=== PATIENT | male | born 1950 | race Caucasian/White ===

== ENCOUNTER 2017-07-04 05:45 | Day surgery (SDC) | payer OTHER ==
[2017-06-25 12:12] LABS: HEMATOCRIT 45.6 % (42-52); MEAN CELL VOLUME 94.2 fL (80-100); MEAN CORPUSCULAR HEMOGLOBIN 32.6 pg (25-34); MEAN CORPUSCULAR HGB CONC 34.6 g/dl (32-36); PLATELET COUNT 188 K/uL (130-400); RED BLOOD COUNT 4.84 M/uL (4.7-6.1)
[2017-06-25 12:26] LABS: INR 1.1 (0.9-1.1); PARTIAL THROMBOPLASTIN RATIO 1.2; PROTHROMBIN TIME (PATIENT) 11.7 SECONDS (9.0-12.0)
[2017-06-25 12:27] LABS: BLOOD UREA NITROGEN 20 mg/dl (7-18); BUN/CREATININE RATIO 15.3 (10-20); CALCIUM 8.8 mg/dl (8.5-10.1); CARBON DIOXIDE 25 mmol/L (21-32); CHLORIDE 104 mmol/L (98-107); GLUCOSE 124 mg/dl (70-99); POTASSIUM 4.2 mmol/L (3.5-5.1); SODIUM 138 mmol/L (136-145)
[~2017-07-04] VITALS: Ht 175.3 cm; Wt 130.0 kg
[~2017-07-04 05:45] MED LIST: ASPI81TA28 PO; GENERAL ORDER PROBLEM SCH; PANT40TA PO; [UNRECOGNIZED DRUG - CODE] PO
[2017-07-04] MEDS ORDERED: SODIUM CHLORIDE 0.9% 1000ML 1,000 ML IV SCH ×2 (06:00→07:15)
[2017-07-04] MEDS ORDERED: ENAL1TAB29 PO (07:02)
[2017-07-04] MEDS ORDERED: PIRO-104 PO (07:02)
[2017-07-04] MEDS ORDERED: CEPH500C2 PO (07:02)
[2017-07-04 07:04] VITALS: BP 159/65; PULSE 57; TEMP 36.6; O2SAT 94; Ht 175.3 cm; Wt 130.0 kg
[2017-07-04] MEDS ORDERED: LIDOCAINE HCL 1% 20 ML VIAL ONE (07:19)
[2017-07-04] MEDS ORDERED: MIDAZOLAM HCL 1 MG/ML 2ML VIAL ONE (07:19)
[2017-07-04] MEDS ORDERED: SODIUM BICARB 8.4% INJ 50 MEQ/50 ML SYR IV ONE (07:19)
[2017-07-04] MEDS ORDERED: LIDOCAINE/EPINEPHRINE 1% INJ 50 ML VIAL ONE (07:19)
[2017-07-04] MEDS ORDERED: FENTANYL CITRATE INJ 50 MCG/1 ML 2 ML VIAL ONE (07:19)
[2017-07-04 07:38] VITALS: BP 159/65; PULSE 57; TEMP 36.6; O2SAT 94
--- NOTE | 2017-07-04 08:03 | History & Physical Bridge Note ---
H&P Re-Evaluation Bridge Note: I have examined the patient, reviewed the History & Physical and in the interval since the performance of the History & Physical I have noted the following changes of clinical significance: No changes noted
--- NOTE | 2017-07-04 08:03 | Procedure Note ---
Pre-Mod Sedation Assessment General Date of Moderate Sedation: Jul 04, 2017. Vital Signs: Vital Signs Past 12 Hours Date Time Temp Pulse Resp B/P (MAP) Pulse Ox O2 Delivery O2 Flow Rate FiO2 07/04/17 07:38 36.6 57 20 159/65 94 Room Air 07/04/17 07:04 36.6 57 20 159/65 (96) 94 Room Air Review Cardiovascular: regular rate, rhythm, no edema Abdomen: normal bowel sounds, non tender Lungs: chest non-tender, lungs clear Airway Class: III Pre-Sedation Airway Assessment Oral Cavity: WNL Able to Visualize Vocal Cords: No Short Thick Neck: No Hx of Sleep Apnea: No Smoking Status: Never Smoker Mallampati Classification: Class III ASA Classification: Class II Procedure Planning Contraindications-for Mod Sed: None Yes Notes The planned sedation has been discussed with the patient and consent obtained. I have identified the patient, determined the appropriateness of sedation and have assessed the patient immediately prior to the procedure. All medicine(s) and interventions are by my order.
[2017-07-04] MEDS ORDERED: LIDOCAINE HCL 1% 20 ML VIAL INJ ONE (08:48)
[2017-07-04] MEDS ORDERED: ORM MISCELLANEOUS MED XX ONE (08:52)
--- NOTE | 2017-07-04 09:13 | Procedure Note ---
Post-Mod Sedation Assessment General Date of Moderate Sedation Jul 04, 2017. Vital Signs: Vital Signs Past 12 Hours Date Time Temp Pulse Resp B/P (MAP) Pulse Ox O2 Delivery O2 Flow Rate FiO2 07/04/17 07:38 36.6 57 20 159/65 94 Room Air 07/04/17 07:04 36.6 57 20 159/65 (96) 94 Room Air Review - Discharge Criteria Vital Signs Stable: Yes Alert/Oriented/Conversant: Yes Returned to Baseline Mental St: Yes Nausea Absent/Minimal: Yes Pain/Discomfort/Absent/Minimal: Yes Normal/Baseline Respirations: Yes Active Bleeding?: No Pt Received D/C Instructions: N/A Prescriptions Given: None Specific Proced. D/C Criteria Distal Pulses Present (Cardiac: Yes Groin site assessed-Card Cath: N/A Voided Prior To Discharge: N/A Discharged Patients Adult Escort/Transportation: Yes
--- NOTE | 2017-07-04 09:15 | [facility] Operative Report ---
Operative Report Operative Date Jul 04, 2017. Pre-Operative Diagnosis Venous Insufficiency Post-Operative Diagnosis Same Procedure(s) Performed Right Leg Greater Saphenous Vein Radiofrequency Ablation Surgeon Bolivar Electroencephalographic Technician Surgeon(s) Bolivar Estimated Blood Loss 5 Findings Dilated GSV with distal varicosities. Fluids 700 Tumescent Specimens None Drains None Anesthesia Local Complication(s) None Disposition Recovery Room / PACU Indications CVI Description of Procedure US guided access Right GSV below the knee. Catheter inserted, 2.75 cm from SFJ. Tumescent injected. US confirmed not in deep system. 4:00, 12 cycles of RFA right GSV. No complications. Patient tolerated well. US confirmed no DVT post procedure. I attest to the content of the Intraoperative Record and any orders documented therein. Any exceptions are noted below.
--- NOTE | 2017-07-04 09:17 | Discharge Instructions ---
Discharge Instructions Procedure Procedure Date: Jul 04, 2017. Reason for Visit: Chronic Venous Insufficiency,Preop. Discharge Discharge Date: Jul 04, 2017. Discharge Diagnosis: Chronic venous insufficiency Last Recorded Wt (Kilograms): 130 Anesthesia Post Anesthesia Instructions: If you have had General Anesthesia or IV Sedation: * Do not drive today. * Resume driving when surgeon permits. * Do not make important decisions or sign legal documents today. * Call surgeon for: 1. Temperature elevations greater than 101 degrees F. 2. Uncontrollable pain. 3. Excessive bleeding. 4. Persistent nausea and vomiting. 5. Medication intolerance (nausea, vomiting or rash). * For nausea and vomiting use only clear liquids such as: tea, soda, bouillon until nausea subsides, then gradually increase diet as tolerated. * If you have any concerns or questions, call your surgeon's office. If physician is unavailable and it is an emergency, call 911 or go to the nearest emergency room. Instructions Activity Recommendations: resume regular activity Recommended Home Diet: resume previous diet Allergies: Coded Allergies: No Known Allergies (Unverified , 07/04/17) Follow Up Additional Instructions: Follow instructions as outlined in paperwork from Dr. Lutz' office. Up walking today. Follow up Ultrasound as scheduled. BREE wrap until scheduled ultrasound Post ultrasound wear compression stockings indefinitely. Any severe pain, present to the emergency room for evaluation for DVT. Follow-up with: As scheduled Thi Kenney Recommendations: Call your doctor if: * Temperature above 101 degrees * Pain not relieved by pain medicine ordered * There is increased drainage or redness from any incision * You have any unanswered questions or concerns. Your Doctors Instructions noted above were prepared by provider Blas Lutz. Patient Signature Section: Patient Instructions Signature Page Malcolm Trent Patient (or Guardian) Signature/Date: I have read and understand the instructions given to me by my caregivers. Caregiver/RN/Doctor Signature/Date: The above-named patient and/or guardian has received patient instructions on this date. + Original Patient Signature Page (only) stays with chart. Please make copy for patient.
[2017-07-04 09:25] VITALS: BP 139/71; PULSE 56; TEMP 36.6; O2SAT 95
[2017-07-04 09:55] VITALS: BP 148/77; PULSE 57; TEMP 36.5; O2SAT 94
== END 2017-07-04 10:10 | disposition home or self-care (01) ==
LOC: C.ACU 05:45
PROVIDERS: ATTEND Internal Medicine Interventional Cardiology
DX: I87.2 Venous insufficiency (chronic) (peripheral) (principal); K21.9 Gastro-esophageal reflux disease without esophagitis

== ENCOUNTER 2020-06-14 10:34 | Observation (INO) ==
--- NOTE | 2020-06-04 10:32 | Anesthesiology Consultation ---
Date of Service June 04, 2020 History Surgery Operation Date: 06/14/20 12:55 Proposed Procedures p Cystolithopaxy - Miguel Early DO s Transurethral Resection Prostate and Cystolithopaxy - Miguel Early DO Height/Weight Height: 5 ft 9 in Weight: 133.81 kg Allergies Allergy/AdvReac Type Severity Reaction Status Date / Time No Known Allergies Allergy Verified 06/04/20 08:25 Medications Home Medications Medication Instructions Recorded Confirmed Last Taken aspirin [Aspir-81] 81 mg PO QAM 05/08/20 06/04/20 Unknown enalapril maleate 40 mg PO QAM 05/08/20 06/04/20 Unknown hydrocodone-acetaminophen 1 - 2 tab PO Q8H PRN 05/08/20 06/04/20 Unknown metoprolol succinate 50 mg PO QAM 05/08/20 06/04/20 Unknown pantoprazole 40 mg PO QAM 05/08/20 06/04/20 Unknown piroxicam 20 mg PO QAM 05/08/20 06/04/20 Unknown Inhaler 1 puff INHALATION UD PRN 06/04/20 06/04/20 Unknown tamsulosin 0.4 mg PO QAM 06/04/20 06/04/20 Unknown Past Medical History Medical History Bladder stones 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
--- NOTE | 2020-06-07 08:22 | PAT Medication Instructions ---
Medication Instructions Date of Service June 07, 2020 Home Medications aspirin [Aspir-81] 81 mg PO QAM enalapril maleate 40 mg PO QAM hydrocodone-acetaminophen 1 - 2 tab PO Q8H PRN metoprolol succinate 50 mg PO QAM pantoprazole 40 mg PO QAM piroxicam 20 mg PO QAM Inhaler 1 puff INHALATION UD PRN tamsulosin 0.4 mg PO QAM ASK your surgeon for instructions piroxicam 20 mg PO QAM ASK your prescriber and surgeon aspirin [Aspir-81] 81 mg PO QAM DO NOT take the morning of surgery enalapril maleate 40 mg PO QAM Take morning of surgery With a small sip of water, OTHERWISE NOTHING TO EAT OR DRINK AFTER MIDNIGHT: hydrocodone-acetaminophen 1 - 2 tab PO Q8H PRN (okay to take up to 4 hours prior to surgery if needed) metoprolol succinate 50 mg PO QAM pantoprazole 40 mg PO QAM Inhaler 1 puff INHALATION UD PRN (if needed) tamsulosin 0.4 mg PO QAM Take evening before surgery hydrocodone-acetaminophen 1 - 2 tab PO Q8H PRN(if needed) Inhaler 1 puff INHALATION UD PRN(if needed) Other Notes If you have any questions please call us at [phone] or [phone] or [phone] or [phone]
--- NOTE | 2020-06-08 13:51 | Anesthesiology Consultation ---
Date of Service June 08, 2020 Assessment & Plan (1) Encounter for pre-operative examination: - Per assessment on 06/04: Travel screen- lives in [facility]. [place] at [employer])- Uses PPE/follows COVID precaution guidelines. No known COVID-19 positive contacts or current COVID-19 related symptoms. Patient had preop COVID testing 06/08 ([place]) which was negative. - ALE: ALE in setting of dysuria/acute urinary retention/possible bladder outlet obstruction secondary to stone/Chamorro- reason for upcoming procedure. Creatinine 2.24 on 05/08/20 labs. Spoke with Erica at surgeon's office to inform them of 05/08 lab results and that DOS 06/14. Will order repeat BMP for AM DOS. Chart Review Chart Review: Acceptable Risk for Surgery (pending BMP AM DOS) and Patient NOT seen in Pre Admission Testing History Surgery Operation Date: 06/14/20 12:15 Proposed Procedures p Cystolithopaxy - Miguel Early DO s Transurethral Resection Prostate and Cystolithopaxy - Miguel Early, Height/Weight Height: 5 ft 9 in Weight: 133.81 kg Allergies Allergy/AdvReac Type Severity Reaction Status Date / Time No Known Allergies Allergy Verified 06/04/20 08:25 Medications Home Medications Medication Instructions Recorded Confirmed Last Taken aspirin [Aspir-81] 81 mg PO QAM 05/08/20 06/04/20 Unknown enalapril maleate 40 mg PO QAM 05/08/20 06/04/20 Unknown hydrocodone-acetaminophen 1 - 2 tab PO Q8H PRN 05/08/20 06/04/20 Unknown metoprolol succinate 50 mg PO QAM 05/08/20 06/04/20 Unknown pantoprazole 40 mg PO QAM 05/08/20 06/04/20 Unknown piroxicam 20 mg PO QAM 05/08/20 06/04/20 Unknown Inhaler 1 puff INHALATION UD PRN 06/04/20 06/04/20 Unknown tamsulosin 0.4 mg PO QAM 06/04/20 06/04/20 Unknown Past Medical History Medical History Bladder stones 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 WBC 12.95 (surgeon's office made aware) H/H 15.8/44.0 PLATELETS 172 SODIUM 136 POTASSIUM 4.5 CHLORIDE 102 CO2 26 BUN 24 CREATININE 2.24 (GFR 28.6) ALE in setting of dysuria/acute urinary retention/possible bladder outlet obstruction secondary to stone/Chamorro. Surgeon's office made aware. GLUCOSE 128 PT 12.0 PTT 34.3 INR 1.1 Electrocardiogram Date: 05/08/20 SR with first degree AVB at 62bpm. Otherwise normal ECG. Chest X-Ray Date: 05/08/20 Low lung volumes with a few bibasilar linear densities suggesting subsegmental atelectasis. Mild cardiomegaly.
[~2020-06-14 10:34] MED LIST changes: -ASPI81TA28 PO; +CIPROFLOXACIN / D5W 400 MG/200 ML BAG IV SCH; -GENERAL ORDER PROBLEM SCH; -PANT40TA PO; +SODIUM CHLORIDE 0.9% 1000ML IV SCH; -[UNRECOGNIZED DRUG - CODE] PO
--- NOTE | 2020-06-14 10:56 | History & Physical Bridge Note ---
Date of Service June 14, 2020 History & Physical Bridge Note I have examined the patient, reviewed the History & Physical and in the interval since the performance of the History & Physical I have noted the following changes of clinical significance: no changes noted
[2020-06-14] MEDS ORDERED: LIDOCAINE HCL 2% 2 ML VIAL/AMP(20MG/ML) INFIL ONE (11:09)
[2020-06-14] MEDS ORDERED: DEXAMETHASONE SOD INJ 4 MG/ML VIAL ONE (11:09)
[2020-06-14] MEDS ORDERED: PROPOFOL IV EMULSION 10 MG/ML 20 ML VIAL IV ONE ×2 (11:09→14:01)
[2020-06-14] MEDS ORDERED: ONDANSETRON INJ 2 MG/ML 2 ML VIAL ONE (11:09)
[2020-06-14] MEDS ORDERED: fentaNYL citrate 100 MCG/2 ML VIAL ONE ×3 (11:10→14:31)
[2020-06-14] MEDS ORDERED: MIDAZOLAM HCL 1 MG/ML 2ML VIAL ONE (11:10)
[2020-06-14] MEDS ORDERED: ePHEDrine sulfate 50 MG/ML AMP IV PRN (11:12)
[2020-06-14] MEDS ORDERED: PHENYLEPHRINE 100MCG/ML 5ML SYR IV PRN (11:12)
[2020-06-14] MEDS ORDERED: fentaNYL citrate 100 MCG/2 ML VIAL IV PRN (11:12)
[2020-06-14] MEDS ORDERED: HYDROmorphone INJ 1 MG/ML SYRINGE IV PRN (11:12)
[2020-06-14] MEDS ORDERED: LABETALOL HCL IV 5 MG/ML 20ML IV PRN (11:12)
[2020-06-14] MEDS ORDERED: ONDANSETRON INJ 2 MG/ML 2 ML VIAL IV PRN ×2 (11:12→13:08)
[2020-06-14] MEDS ORDERED: ATROPINE SULFATE 0.1 MG/ML 10ML SYR IV PRN (11:12)
[2020-06-14] MEDS ORDERED: MEPERIDINE HCL 25 MG/ML CARP/VIAL IV PRN (11:12)
[2020-06-14 11:42] LABS: Calcium 9.1 mg/dl (8.5-10.1); Creatinine Clr Calc Pharmacy 73.8 ml/min; Est GFR (African American) 65.3; Est GFR (Non-African American) 56.3
[2020-06-14] MEDS ORDERED: BELLADONNA/OPIUM SUPP 60 MG SUPP PR ONE ×2 (13:08→15:34)
--- NOTE | 2020-06-14 14:58 | Operative Report ---
[facility] Post Operative Report Pre & Post Diagnosis BPH with obstruction. Bladder stones Same Operation Date: 06/14/20 12:15 <No data on this case meets the specified criteria> I identified the patient and participated in the time-out.: Yes Procedure Cystoscopy with destruction and extraction of stones. Transurethral resection of prostate. Operation Date: 06/14/20 12:15 <No data on this case meets the specified criteria> Surgeon Miguel Early, II, DO Production Boring Machine Operator None Estimated Blood Loss 5 Findings Consistent with Post-Op Diagnosis Large Prostate with obstruction. Multiple stones in base of bladder approx 1.2- 1.5 cm in size. Specimens Prostate adenoma. Drains 24Fr [address] Catheter Anesthesia Type General Complications none Disposition Disposition: Recovery Room Indications Patient with obstruction due to prostate enlargement. Risks and benefits discussed at length. Description of Procedure Patient was consented and brought back to the operating room. Patient was placed under anesthesia in the supine position and moved to the dorsal lithotomy position. Patient was prepped and draped in the regular sterile fashion. A time out was completed. A 30degree Cystoscope was placed into the bladder and the entire bladder was examined. The UO's were identified as well as the bladder neck, trigone, dome, and the other important landmarks. The prostatic urethra and large lobes/adenoma was assessed and the veru and bladder neck identified and area/size was assessed. The resection scope was placed and the fine bipolar loop was selected. Starting at the 5 and 7 o'clock positions, a channel was created from bladder neck to the veru. With the channel created, resection was taken from the 1 and 11 oclock position to the channel. A large amount of tissue was resected to open a good channel and debulk the large amount of prostate. The Specimen was removed and sent for analysis. The resection bed and any bleeding areas were fulgurated/cauterized and the entire area inspected. All bleeding was controlled. The bladder stones were isolated and destroyed and irrigated and removed. The bladder was inspected a final time. The bladder was emptied and irrigated. All specimen and debris was removed. The scope was removed with the bladder partially full. A catheter was placed and balloon elevated. This was easily irrigated. This was attached to the continuous bladder irrigation. The patient was cleaned, aroused from anesthesia, and transferred to the pacu in stable condition having tolerated the procedure well with no complications. I was present and participated in all aspects of the procedure. The patient will be monitored in the PACU until transferred. I attest to the content of the Intraoperative Record and any orders documented therein. Any exceptions are noted below.
[2020-06-14 15:51] LABS: Basophils # (auto) 0.03 K/uL (0-0.2); Basophils % (auto) 0.4 %; Eosinophils % (auto) 1.2 %; Hematocrit (blood only) 44.4 % (42-52); Hemoglobin 15.3 g/dL (14.0-18.0); Immature Granulocytes # (auto) 0.05 K/uL (0.00-0.02); Immature Granulocytes % (auto) 0.6 %; Lymphocytes # (auto) 1.04 K/uL (1.2-3.4); Mean Corpuscular Hemoglobin 32.9 pg (25-34); Mean Corpuscular Hgb Conc 34.5 g/dL (32-36); Mean Corpuscular Volume 95.5 fL (80-100); Mean Platelet Volume 9.5 fL (7.4-10.4); Monocytes # (auto) 0.35 K/uL (0.11-0.59); Monocytes % (auto) 4.4 %; Neutrophils # (auto) 6.44 K/uL (1.4-6.5); Neutrophils % (auto) 80.4 %; Platelet Count 159 K/uL (130-400); RDW Standard Deviation 48.7 fL (36.4-46.3); Red Blood Count 4.65 M/uL (4.7-6.1); White Blood Count 8.01 K/uL (4.8-10.8)
--- NOTE | 2020-06-14 15:54 | Anesthesiology Progress Note ---
Date of Service June 14, 2020 Anesthesia Post Procedure Vital Signs Vital Signs: Temp Pulse Pulse Resp BP BP Pulse Ox 06/14/20 15:45 36.2 C L 70 19 124/71 95 06/14/20 15:35 72 14 138/71 93 06/14/20 15:25 73 20 151/73 H 95 06/14/20 15:15 74 19 150/73 H 95 06/14/20 15:08 36.1 C L 79 22 189/87 H 95 06/14/20 11:21 36.5 C 97 H 22 168/81 H 97 Transfer of Care Handoff Completed per policy Notes Mental Status: alert / awake / arousable and participated in evaluation Patient Amnestic to Procedure: Yes Nausea / Vomiting: adequately controlled Pain: adequately controlled Airway Patency, RR, SpO2: stable & adequate BP & HR: stable & adequate Hydration State: stable & adequate Anesthetic Complications: no major complications apparent and Pt Satisfied with anesthetic care
[2020-06-14 16:03] LABS: Potassium 4.4 mmol/L (3.5-5.1)
[2020-06-14] MEDS ORDERED: INFLUENZA VIRUS QUAD VACCINE 0.5 ML SYR IM ONE (16:38)
[2020-06-14] MEDS ORDERED: INFLUENZA ADMINISTRATION CHARGE ONE (16:38)
[2020-06-14] MEDS: SODIUM CHLORIDE 0.9% 1000ML 1,000 ML IV SCH (16:44)
[2020-06-14 17:52] LABS: BUN Creatinine Ratio 14.4 (10-20); Calcium 8.7 mg/dl (8.5-10.1); Creatinine Clr Calc Pharmacy 74.7 ml/min; Est GFR (African American) 65.3; Est GFR (Non-African American) 56.3
[2020-06-14] MEDS: oxyCODONE HCL IR 5 MG TAB (IMMEDIATE RELEASE) PO PRN (19:20)
[2020-06-14] MEDS: ENALAPRIL MALEATE 10 MG TAB PO SCH (19:56)
[2020-06-14] MEDS: TAMSULOSIN HCL 0.4 MG CAP PO SCH (19:57)
[2020-06-14] MEDS: METOPROLOL SUCC 50MG EXT REL TAB PO SCH (19:57)
[2020-06-14] MEDS: PANTOprazole 40 MG TAB PO SCH (19:57)
[2020-06-14] MEDS: ceFAZolin 2000MG 2,000 MG/15 ML SYR IV SCH (20:18)
[2020-06-14] MEDS: DOCUSATE SODIUM 100 MG CAP PO SCH (20:23)
[2020-06-14] MEDS: MoRPHine SULFATE 4 MG/ML 1 ML CARP\\VIAL IV PRN ×2 (21:40→23:47)
--- NOTE | 2020-06-14 23:28 | Urology Progress Note ---
Date of Service June 14, 2020 Assessment & Plan Admission and Anticipated Discharge Date Admission Date: June 14, 2020 Subjective On-call note Nurse called approximately 9:30 PM saying that she was having a lot of difficulty irrigating Mr. Trent's catheter and was very bloody he was having a fair amount of lower abdominal pain. I irrigated the catheter with about 3 L of normal saline until it was light pink Then reattached to his CBI at a moderate rate Urine would stay pink and then become more giles and then transition back to pink I tried putting the Chamorro on traction but that made the bleeding worse Irrigated the catheter again until light pink We will switch irrigation to 1% alum hopefully this will stem the oozing that I think is happening After irrigating the catheter and getting it fairly clear patient's abdominal pain resolved. Results & Data ([facility]) Vital Signs (Past 12 Hours) Vital Signs Temp Pulse Pulse Resp BP Pulse Ox 06/14/20 23:24 36.6 C 83 16 119/68 95 06/14/20 19:11 36.5 C 85 18 162/76 H 96 06/14/20 18:18 36 C L 77 20 124/43 L 94 06/14/20 17:11 36.4 C L 68 16 136/75 97 06/14/20 16:40 37 C 68 16 153/83 H 97 06/14/20 16:10 36.6 C 16 159/80 H 95 06/14/20 15:55 71 12 143/67 H 97 06/14/20 15:45 36.2 C L 70 19 124/71 95 06/14/20 15:35 72 14 138/71 93 06/14/20 15:25 73 20 151/73 H 95 06/14/20 15:15 74 19 150/73 H 95 06/14/20 15:08 36.1 C L 79 22 189/87 H 95 PG Care Time/CCT Total # of Minutes Spent Total Time Spent with Patient: Total time spent is greater than 50% in coordination of care (as documented) at patient's floor/unit and/or counseling patient: Coding Level of Care Code None
[2020-06-14] MEDS: AMMONIUM ALUM 30 GM in SODIUM CHLORIDE 0.9% IRRIG 3,000 ML IR SCH (23:38)
--- NOTE | 2020-06-15 02:38 | Urology Progress Note ---
Date of Service June 15, 2020 Assessment & Plan Admission and Anticipated Discharge Date Admission Date: June 14, 2020 Subjective Was called back to the hospital again as the patient got out of bed to go to the bathroom apparently was straining to have a bowel movement and started bleeding again. Nurse was again unable to flush the catheter. I irrigated the bladder with 5 L of sterile water and return a large amount of clot from the bladder. At the end of the irrigation the urine was running clear. I reattached his CBI with 1% alum recommended the patient stay in bed tonight Results & Data ([facility]) Vital Signs (Past 12 Hours) Vital Signs Temp Pulse Pulse Resp BP Pulse Ox 06/14/20 23:24 36.6 C 83 16 119/68 95 06/14/20 19:11 36.5 C 85 18 162/76 H 96 06/14/20 18:18 36 C L 77 20 124/43 L 94 06/14/20 17:11 36.4 C L 68 16 136/75 97 06/14/20 16:40 37 C 68 16 153/83 H 97 06/14/20 16:10 36.6 C 16 159/80 H 95 06/14/20 15:55 71 12 143/67 H 97 06/14/20 15:45 36.2 C L 70 19 124/71 95 06/14/20 15:35 72 14 138/71 93 06/14/20 15:25 73 20 151/73 H 95 06/14/20 15:15 74 19 150/73 H 95 06/14/20 15:08 36.1 C L 79 22 189/87 H 95 PG Care Time/CCT Total # of Minutes Spent Total Time Spent with Patient: Total time spent is greater than 50% in coordination of care (as documented) at patient's floor/unit and/or counseling patient: Coding Level of Care Code None
[2020-06-15] MEDS: ceFAZolin 2000MG 2,000 MG/15 ML SYR IV SCH ×2 (03:14→11:33)
[2020-06-15] MEDS: MoRPHine SULFATE 4 MG/ML 1 ML CARP\\VIAL IV PRN (04:54)
[2020-06-15] MEDS: SODIUM CHLORIDE 0.9% 1000ML 1,000 ML IV SCH ×2 (05:07→17:16)
[2020-06-15] MEDS ORDERED: COUGH DROP (SUGAR FREE) LOZ 24 LOZ/1 BOX BUCCAL PRN (05:33)
[2020-06-15 07:07] LABS: Hematocrit (blood only) 36.4 % (42-52); Hemoglobin 12.1 g/dL (14.0-18.0); Mean Corpuscular Hemoglobin 32.2 pg (25-34); Mean Corpuscular Hgb Conc 33.2 g/dL (32-36); Mean Corpuscular Volume 96.8 fL (80-100); Mean Platelet Volume 9.6 fL (7.4-10.4); Platelet Count 244 K/uL (130-400); RDW Coefficient of Variation 14.2 % (11.5-14.5); Red Blood Count 3.76 M/uL (4.7-6.1); White Blood Count 15.49 K/uL (4.8-10.8)
[2020-06-15] MEDS: AMMONIUM ALUM 30 GM in SODIUM CHLORIDE 0.9% IRRIG 3,000 ML IR SCH (08:04)
--- NOTE | 2020-06-15 08:06 | Urology Progress Note ---
Date of Service June 15, 2020 Assessment & Plan (1) Acute urinary retention: Postop day #1 status post TURP Had some bleeding issues overnight that he seemed to have resolved He is resting comfortably now and his urine is very clear We will continue slow CBI this morning Evaluate again later today, possible discharge home later today if we can clamp the CBI Admission and Anticipated Discharge Date Admission Date: June 14, 2020 Subjective Status post TURP yesterday Unfortunately it sounds as though he had a very eventful night and Dr. Meyers visited with him 2 times to clear clots Fortunately, his urine is now clear on slow CBI with some saline He reports that he feels well now Physical Exam Physical Exam: Urine clear on slow CBI with normal saline Results & Data ([facility]) Vital Signs (Past 12 Hours) Vital Signs Temp Pulse Resp BP Pulse Ox 06/15/20 06:54 36.5 C 66 18 121/71 94 06/15/20 02:47 36.6 C 72 18 109/65 95 06/14/20 23:24 36.6 C 83 16 119/68 95 PG Care Time/CCT Total # of Minutes Spent Total Time Spent with Patient: Total time spent is greater than 50% in coordination of care (as documented) at patient's floor/unit and/or counseling patient: Coding Level of Care Code None Diagnoses Acute urinary retention R33.8
[2020-06-15] MEDS: PANTOprazole 40 MG TAB PO SCH (10:11)
[2020-06-15] MEDS: TAMSULOSIN HCL 0.4 MG CAP PO SCH (10:11)
[2020-06-15] MEDS: METOPROLOL SUCC 50MG EXT REL TAB PO SCH (10:11)
[2020-06-15] MEDS: ENALAPRIL MALEATE 10 MG TAB PO SCH (10:11)
[2020-06-15] MEDS: PIROXICAM 10 MG CAP PO SCH (10:12)
[2020-06-15] MEDS: DOCUSATE SODIUM 100 MG CAP PO SCH ×2 (10:12→20:16)
[2020-06-15] MEDS: oxyCODONE HCL IR 5 MG TAB (IMMEDIATE RELEASE) PO PRN (22:08)
[2020-06-15] MEDS: ACETAMINOPHEN 325 MG TAB PO PRN (22:29)
[2020-06-16] MEDS: SODIUM CHLORIDE 0.9% 1000ML 1,000 ML IV SCH (05:31)
[2020-06-16] MEDS: PIROXICAM 10 MG CAP PO SCH (07:35)
[2020-06-16] MEDS: ACETAMINOPHEN 325 MG TAB PO PRN (07:35)
[2020-06-16] MEDS: METOPROLOL SUCC 50MG EXT REL TAB PO SCH (07:35)
[2020-06-16] MEDS: ENALAPRIL MALEATE 10 MG TAB PO SCH (07:36)
[2020-06-16] MEDS: PANTOprazole 40 MG TAB PO SCH (07:36)
[2020-06-16] MEDS: TAMSULOSIN HCL 0.4 MG CAP PO SCH (07:36)
[2020-06-16] MEDS: DOCUSATE SODIUM 100 MG CAP PO SCH (07:36)
[2020-06-16 08:31] LABS: Basophils # (auto) 0.02 K/uL (0-0.2); Basophils % (auto) 0.4 %; Eosinophils # (auto) 0.04 K/uL (0-0.5); Eosinophils % (auto) 0.7 %; Hematocrit (blood only) 29.7 % (42-52); Immature Granulocytes # (auto) 0.03 K/uL (0.00-0.02); Immature Granulocytes % (auto) 0.5 %; Lymphocytes # (auto) 1.02 K/uL (1.2-3.4); Lymphocytes % (auto) 17.9 %; Mean Corpuscular Hemoglobin 32.2 pg (25-34); Mean Corpuscular Hgb Conc 33.7 g/dL (32-36); Mean Corpuscular Volume 95.5 fL (80-100); Monocytes # (auto) 0.57 K/uL (0.11-0.59); Neutrophils # (auto) 4.02 K/uL (1.4-6.5); Neutrophils % (auto) 70.5 %; Platelet Count 161 K/uL (130-400); RDW Coefficient of Variation 14.4 % (11.5-14.5); RDW Standard Deviation 49.9 fL (36.4-46.3); Red Blood Count 3.11 M/uL (4.7-6.1)
[2020-06-16 08:50] LABS: Calcium 7.9 mg/dl (8.5-10.1); Creatinine Clr Calc Pharmacy 62.9 ml/min; Est GFR (Non-African American) 45.8; Potassium 4.3 mmol/L (3.5-5.1)
--- NOTE | 2020-06-16 08:52 | Urology Progress Note ---
Date of Service June 16, 2020 Assessment & Plan (1) Acute urinary retention: (2) Bladder stones: 69 year-old male patient admitted s/p TURP and destruction of bladder stones. -POD #2 cystoscopy, TURP, and destruction and extraction of bladder stones. -Did have episode of confusion overnight with elevated temperature, now alert and oriented x4. -Temperature improved this morning, most recent 37.2 C. -Repeat labs reviewed, white count improving, mild increase in creatinine. -Three-way abbott catheter with clear yellow urine, will clamp CBI now. -Continue with IV fluids and antibiotic therapy. -Will plan to reassess later this afternoon. -If patient continues to feel well and urine remains clear, consider discharge home with PO antibiotic therapy. -Patient in agreement with plan. Admission and Anticipated Discharge Date Admission Date: June 14, 2020 Subjective POD #2 cystoscopy with destruction and extraction of bladder stones and TURP. Nursing notes reviewed - patient had episode of confusion with elevated temperature last evening, code purple subsequently called. IV Ceftriaxone started at that time and he was given dose of Tylenol with improvement of symptoms. Patient reports he is feeling better this morning. No further episodes of confusion, now alert and oriented. Currently denies pain. Has been tolerating three-way abbott catheter with CBI, clear yellow urine. Did not require manual irrigation overnight. Denies fevers or chills this morning. Denies nausea or vomiting. Chart review: T max 38.2 C over the past 24 hours. Temperature this morning 37.8 C with recheck of 37.2 C after administration of Tylenol. Wbc 5.70 (previously 15.49) Hgb 10.0 Creatinine 1.52 Denies additional urologic concerns today. Review of Systems Constitutional: as per Subjective / HPI; no chills Respiratory: no cough and no dyspnea Cardiovascular: no chest pain Gastrointestinal: as per Subjective / HPI; no nausea and no vomiting Genitourinary: + as per Subjective / HPI Neurologic: as per Subjective / HPI Psychiatric: as per Subjective / HPI Physical Exam Constitutional: well developed and well nourished; no acute distress and not ill appearing Respiratory: normal respiratory effort and able to speak in complete sentences; no respiratory distress and no audible wheezes Cardiovascular: Extremities: no calf tenderness Gastrointestinal (Abdomen): Inspection/Auscultation: abdomen normal to inspection; abdomen not distended Percussion/Palpation: abdomen soft; abdomen nontender and no guarding Psychiatric: Orientation: alert, oriented x 3 and cooperative Affect: euthymic affect Genitourinary: no CVA tenderness Three way catheter intact with CBI infusing. Urine clear yellow. Results & Data ([facility]) Vital Signs (Past 12 Hours) Vital Signs Temp Pulse Resp BP Pulse Ox 06/16/20 08:32 37.2 C 06/16/20 07:53 37.8 C H 89 15 155/74 H 92 06/15/20 23:49 37.6 C H 96 H 20 136/72 92 06/15/20 22:11 131/67 92 06/15/20 21:56 38.2 C H PG Care Time/CCT Total # of Minutes Spent Total Time Spent with Patient: Total time spent is greater than 50% in coordination of care (as documented) at patient's floor/unit and/or counseling patient: Coding Level of Care Code None Diagnoses Acute urinary retention R33.8 Bladder stones N21.0
[2020-06-16] MEDS ORDERED: cefTRIAXone SODIUM 2,000 MG in DEXTROSE 5% 50 ML IV SCH (09:00)
--- NOTE | 2020-06-17 08:01 | Discharge Summary ---
Date of Service June 17, 2020 Admission HPI Per Admitting Provider See H&P Admission Exam Per Admitting Provider See H&P Principal Diagnosis BPH with obstruction and bladder stones. Discharge Exam General: Alert in no acute distress. HEENT: Normocephalic Atraumatic. Inspection normal. Psychologic: Normal affect. Skin: [place] and Dry. No rashes or visible lesions. Abdomen: Soft Non-distended. No rebound or guarding. Discharge Data Allergies Allergy/AdvReac Type Severity Reaction Status Date / Time No Known Allergies Allergy Verified 06/14/20 11:16 Procedures Performed Operation Date: 06/14/20 12:15 Actual Procedures p Cystolithopaxy(Not Applicable) - Miguel Early DO s Transurethral Resection Prostate, Extraction of Bladder Stone(Not Applicable) - Miguel Early DO Hospital Course (1) Acute urinary retention: Postop day #1 status post TURP Had some bleeding issues overnight that he seemed to have resolved He is resting comfortably now and his urine is very clear We will continue slow CBI this morning Evaluate again later today, possible discharge home later today if we can clamp the CBI (2) Bladder stones: 69 year-old male patient admitted s/p TURP and destruction of bladder stones. -POD #2 cystoscopy, TURP, and destruction and extraction of bladder stones. -Did have episode of confusion overnight with elevated temperature, now alert and oriented x4. -Temperature improved this morning, most recent 37.2 C. -Repeat labs reviewed, white count improving, mild increase in creatinine. -Three-way abbott catheter with clear yellow urine, will clamp CBI now. -Continue with IV fluids and antibiotic therapy. -Will plan to reassess later this afternoon. -If patient continues to feel well and urine remains clear, consider discharge home with PO antibiotic therapy. -Patient in agreement with plan. Total Time Total Time Spent Total Time Spent (In Minutes): 10 minutes Total Time Includes: Examination of the Patient, Discharge Planning, Medication Reconciliation and Communication With Other Providers Discharge Plan Discharge Items Patient Disposition: Home - Self-Care Reason For Visit: Bladder Stones, Acute Urinary Retention Discharge Diagnosis: Bladder stones, acute urinary retention Activity: Per Instructions section Lifting: No more than 10 pounds Bathing Comment: No tub baths, okay to shower tonight. Sexual Activity: Wait until after follow-up appointment Exercise/Sports: Wait until after follow-up appointment Driving/Machine Use: Do not drive while on narcotic pain medication Non-emergency contact: Surgeon and Urologist Call non-emergency contact if: you have any medication questions, your pain is not controlled, your pain is concerning for you and your temperature is above 101 Follow-up/Referrals: Blas Trivedi MD [Physician] - (DR BENY BAUTISTA'S OFFICE WILL CALL PATIENT AND SCHEDULE FOLLOW UP APPT WITH PATIENT.) Josué Vallecillo MD [Primary Care Provider] - 06/21/20 3:15 pm Diet: Regular Addtl Attending Provider Instructions: Please take all medications as prescribed and keep all follow-ups as scheduled. We will contact you with your appointment for catheter removal. Please call our office at [phone] with any questions, concerns or need to reschedule appointments for any reason. We are happy to assist you. An antibiotic was sent to your pharmacy. Please take as directed. Pain medication was also sent. Do not take Hydrocodone with or on the same day as Oxycodone. Do not drive while on narcotic pain medication. Tips for your recovery at home: Dont be alarmed by brownish or reddish blood or clots in your urine. This is a result of the procedure. This may occur off and on for weeks to months after the procedure but should continue to improve. Drink plenty of fluids during the day (enough to keep your urine very light colored). This will help keep a healthy flow of urine. Do not lift >10 lbs until your followup Avoid constipation. Please use a stool softener (Colace) for the first two weeks after your procedure Be sure to finish the antibiotics as prescribed. If you go home with a catheter, please wash tubing where it enters your body twice daily with mild soap (Dove or Dial). Once your catheter is removed, expect some blood in your urine and some burning when you urinate. You should have an appointment to have this removed, if you do not please call our office to arrange. When to call [facility] at [phone]: Your urine contains heavy blood clots You are constantly leaking urine Fever of 101F or higher, chills, nausea, or vomiting Your pain is not relieved with medication Pending Studies at Discharge: Yes Studies:: pathology Stand-Alone Forms: My [facility], Smoking Cessation Medications and DC Order Prescriptions: New docusate sodium [Colace] 100 mg capsule 100 mg PO BID Qty: 60 RF: 0 ciprofloxacin HCl 500 mg tablet 500 mg PO BID 5 Days Qty: 10 RF: 0 oxycodone 5 mg tablet 5 mg PO Q8H PRN (Reason: pain) Qty: 7 RF: 0 Continued pantoprazole 40 mg tablet,delayed release (DR/EC) 40 mg PO QAM RF: 0 enalapril maleate [Vasotec] 20 mg tablet 40 mg PO QAM RF: 0 aspirin 81 mg Tablet,Delayed Release (Dr/Ec) 81 mg PO QAM RF: 0 hydrocodone-acetaminophen 5-325 mg tablet 1 - 2 tab PO Q8H PRN (Reason: Pain) RF: 0 metoprolol succinate [Toprol XL] 50 mg tablet extended release 24 hr 50 mg PO QAM RF: 0 piroxicam [Feldene] 20 mg capsule 20 mg PO QAM RF: 0 tamsulosin [Flomax] 0.4 mg capsule 0.4 mg PO QAM RF: 0 Discharge Orders: Discharge Order (Routine); Ordered 06/16/20 Ordered By: Racheal Hines/Other Patient Handouts: Indwelling Urinary Catheter Dc, Discharge Instructions Caring for ... Admission Data Admit Date/Time: 06/14/20 13:08 Attending Provider: Miguel Early Admit Provider: Miguel Early Primary Care Provider: Josué Vallecillo Other Interventions: Discharge Summary Assessment (RN) Last Done: 06/16/20 16:49 Coding Level of Care Code D/C Day Management <30 mins Diagnoses Acute urinary retention R33.8 Bladder stones N21.0
== END 2020-06-16 17:10 | disposition home or self-care (01) ==
LOC: 3N 10:34 → ASU 10:34
DX: K21.9 Gastro-esophageal reflux disease without esophagitis; Z79.82 Long term (current) use of aspirin; N40.1 Benign prostatic hyperplasia with lower urinary tract symptoms; R33.8 Other retention of urine; I10 Essential (primary) hypertension; Z79.899 Other long term (current) drug therapy; N21.0 Calculus in bladder

== ENCOUNTER 2023-01-08 08:55 | Observation (INO) ==
--- NOTE | 2022-12-11 15:01 | PAT Medication Instructions ---
Medication Instructions Date of Service December 11, 2022 Home Medications aspirin 81 mg tablet,delayed release 81 mg PO QAM enalapril maleate 20 mg tablet (Vasotec) 40 mg PO QAM metoprolol succinate 50 mg tablet,extended release 24 hr (Toprol XL) 50 mg PO QAM pantoprazole 40 mg tablet,delayed release 40 mg PO QAM DO NOT take the morning of surgery enalapril maleate 20 mg tablet (Vasotec) 40 mg PO QAM Take morning of surgery With a small sip of water, OTHERWISE NOTHING TO EAT OR DRINK AFTER MIDNIGHT: aspirin 81 mg tablet,delayed release 81 mg PO QAM (continue as normal unless told otherwise by surgeon) metoprolol succinate 50 mg tablet,extended release 24 hr (Toprol XL) 50 mg PO QAM pantoprazole 40 mg tablet,delayed release 40 mg PO QAM Other Notes If you have any questions please call us at [phone] or [phone] or [phone] or [phone]
--- NOTE | 2022-12-19 09:42 | Anesthesiology Consultation ---
Date of Service December 19, 2022 Assessment & Plan (1) Encounter for pre-operative examination: - awaiting cardiology pre-op evaluation. Optimization form completed. Surgeon's office made aware. - Case discussed with Dr. Knight who advised pt have cardiology evaluation prior to surgery. Outpatient joint assessment: Patient is currently scheduled for inpatient pathway. If re-evaluated pending system levels during current pandemic/surgeon requests outpatient pathway, patient is not a recommended candidate for outpatient joint program from anesthesia standpoint. Chart Review Chart Review: Pending: Refer to Additional Notes / Consult section and Patient seen in Pre Admission Testing Teaching & Discussion Pre-Anesthesia Teaching/Discussion Notes: Instructed NPO after midnight before surgery, except medications with 15 cc of water. Medication instructions provided according to the PAT guidelines. History Surgery Operation Date: 01/08/23 11:40 Proposed Procedures p Left Total Hip Arthroplasty Anterior - Benjie Rodriguez, Height/Weight Height: 5 ft 9 in Weight: 132.8 kg Allergies Allergy/AdvReac Type Severity Reaction Status Date / Time No Known Allergies Allergy Verified 12/11/22 08:37 Medications Home Medications Medication Instructions Recorded Confirmed Last Taken aspirin 81 mg tablet,delayed 81 mg PO QAM 05/08/20 12/11/22 06/06/20 release enalapril maleate 20 mg tablet 40 mg PO QAM 05/08/20 12/11/22 06/13/20 08:00 (Vasotec) metoprolol succinate 50 mg 50 mg PO QAM 05/08/20 12/11/22 06/13/20 08:00 tablet,extended release 24 hr (Toprol XL) pantoprazole 40 mg tablet,delayed 40 mg PO QAM 05/08/20 12/11/22 06/13/20 08:00 release Past Medical History Medical History (Updated 12/19/22 @ 09:57 by Savannah Treadwell PA-C) Bladder stones 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 doing well currently. GERD (gastroesophageal reflux disease) controlled, stable per pt History of COVID-19 hx - mild symptoms at the time. 08/2021 Hyperlipidemia Hypertension controlled, stable per pt Morbid obesity Renal insufficiency Patient denies h/o stroke, seizures, heart attack, heart failure, DM, blood clots or blood transfusions. Exercise / Class Metabolic Activity II 4-5 Yardwork/Stairs/Walk up hill (SOB with activities, denies chest discomfort) Past Family History Family History Mother Diabetes Other No family history of adverse response to anesthesia Past Surgical History Surgical History H/O cystoscopy 06/14/20 LMA#5. History of colonoscopy multiple History of incision and drainage left upper leg after trama History of tonsillectomy and adenoidectomy Status post endovenous radiofrequency ablation (RFA) of saphenous vein right leg as per pt Past Anesthesia History No Hx of Anesthesia Complications and No Family Hx of Anesthesia Complications History of PONV No Hx of PONV and No Hx of Motion Sickness Social History Smoking Status: Never smoker Do You Dip or Chew Tobacco: No Hx Alcohol Use: Yes Alcohol type: beer and wine alcohol intake frequency: holidays/special occasions only Hx Substance Use: No substance use type: does not use Review of Systems Pt reports intermittent palpitations with activity ongoing x several yrs, denies change or worsening. Occasionally associated with dizziness or shortness of breath, denies chest discomfort. Denies presyncope. Chronic cough productive of green sputum, ongoing x yrs per pt without change or worsening. Patient denies chest pain, snoring, witnessed apneas, fever, chills, or wheezing. Physical Exam Vital Signs Vitals BP 145/96 (Pt states has not yet taken his antihypertensive today) P 60 TEMP 97.7 SP02 95% on RA RESP 17 Physical Full cervical extension range of motion without pain TMD <3 finger breadths Mallampati Score 3 Dentition: intact, denies chipped or loose teeth, caps/crowns, implants or bridges Lungs: normal respiratory effort. Good air movement, clear throughout to auscultation, no adventitious breath sounds Cardiac: regular rate and rhythm, no murmurs noted Carotid arteries: negative bruit bilat Lab Results Anesthesia Preop Results Results Anesthesia Widget: WBC 8.33 K/ul (4.8-10.8) 12/19/22 Hgb 15.1 g/dl (14.0-18.0) 12/19/22 Hct 44.0 % (42.0-52.0) 12/19/22 Plt 203 K/uL (130-400) 12/19/22 Na 137 mmol/L (136-145) 12/19/22 K 4.0 mmol/L (3.5-5.1) 12/19/22 Cl 103 mmol/L (98-107) 12/19/22 CO2 27 mmol/L (21-32) 12/19/22 BUN 19 mg/dl (6-23) 12/19/22 Creat 1.14 mg/dl (0.6-1.4) 12/19/22 Glucose Level 147 mg/dl (70-99(Fasting)) H 12/19/22 PT 11.9 Seconds (9.0-12.0) 12/19/22 PTT 29.9 Seconds (21.0-31.0) 12/19/22 INR 1.1 (0.9-1.1) 12/19/22 Blood Type O Positive 12/19/22 Antibody Screen NEGATIVE 12/19/22 Testing Electrocardiogram Date: 12/19/22 Sinus rhythm with 1st degree AV block, rate 62 bpm RBBB Cannot rule out inferior infarct, age undetermined Chest X-Ray Date: 12/19/22 Cardiomegly with no active disease in the chest COVID-19 Risk Screen Screening Information COVID-19 Screen Date: 12/19/22 Exposure 21 Days Family/Household +COVID Last 21 Days: No Exposure 10 Days Any COVID Exposure Last 10 Days: No Symptoms Last 10 Days Experienced COVID Sx Last 10 Days: No + COVID 0-90 Days COVID + in Last 0-90 Days: No
[~2023-01-08 08:55] MED LIST changes: +ACETAMINOPHEN 500 MG TAB PO SCH; +BUPIVACAINE 0.5 % 5 MG/1 ML PF 10ML VIAL ONE; -CIPROFLOXACIN / D5W 400 MG/200 ML BAG IV SCH; +FAMOTIDINE 20 MG TAB PO SCH; +GABAPENTIN 300 MG CAP PO SCH; +LR 60ML/HR IV SCH; +ORTHO JOINT MIX INFIL SCH; -SODIUM CHLORIDE 0.9% 1000ML IV SCH; +TRANEXAMIC ACID 1,000 MG **IV Intra-op IV SCH; +TRANEXAMIC ACID 1,000 MG **IV Pre-op IV SCH; +dexAMETHasone 4 MG TAB PO SCH
[2023-01-08] MEDS ORDERED: PROPOFOL IV EMULSION 10 MG/ML 20 ML VIAL IV ONE (09:48)
[2023-01-08] MEDS ORDERED: ONDANSETRON INJ 2 MG/ML 2 ML VIAL ONE (09:48)
[2023-01-08] MEDS ORDERED: MIDAZOLAM HCL 1 MG/ML 2ML VIAL ONE (09:48)
[2023-01-08] MEDS ORDERED: LIDOCAINE 2% 2 ML VIAL/AMP(20MG/ML) INFIL ONE (09:48)
--- NOTE | 2023-01-08 10:37 | History & Physical Bridge Note ---
Date of Service January 08, 2023 History & Physical Bridge Note I have examined the patient, reviewed the History & Physical and in the interval since the performance of the History & Physical I have noted the following changes of clinical significance: no changes noted
[2023-01-08] MEDS ORDERED: ATROPINE SULFATE 0.1 MG/ML 10ML SYR IV PRN (10:44)
[2023-01-08] MEDS ORDERED: fentaNYL citrate PF 100 MCG/2 ML VIAL IV PRN (10:44)
[2023-01-08] MEDS ORDERED: ONDANSETRON INJ 2 MG/ML 2 ML VIAL IV PRN ×2 (10:44→16:51)
[2023-01-08] MEDS ORDERED: ePHEDrine sulfate 50 MG/ML AMP IV PRN (10:44)
[2023-01-08] MEDS ORDERED: ORTHO JOINT ANESTHETIC ONE (11:01)
--- NOTE | 2023-01-08 11:05 | Anesthesiology Consultation ---
Date of Service January 08, 2023 Assessment & Plan Chart Review Chart Review: Acceptable Risk for Surgery Consults Requested none ASA ASA3 Proposed Anesthesia Anesthesia Type: MAC Spinal Risk / Benefits Reviewed With: PT / POA / Parent / Guardian, Accepts Plan and Informed Consent Obtained History Surgery Operation Date: 01/08/23 11:00 Proposed Procedures p Left Total Hip Arthroplasty Jadon - Benjie Rodriguez, Height/Weight Height: 5 ft 9 in Weight: 132.477 kg Allergies Allergy/AdvReac Type Severity Reaction Status Date / Time No Known Allergies Allergy Verified 01/08/23 09:48 Medications Home Medications Medication Instructions Recorded Confirmed Last Taken aspirin 81 mg tablet,delayed 81 mg PO QAM 05/08/20 01/08/23 01/07/23 08:00 release enalapril maleate 20 mg tablet 40 mg PO QAM 05/08/20 01/08/23 01/07/23 08:00 (Vasotec) metoprolol succinate 50 mg 50 mg PO QAM 05/08/20 01/08/23 01/07/23 08:00 tablet,extended release 24 hr (Toprol XL) pantoprazole 40 mg tablet,delayed 40 mg PO QAM 05/08/20 01/08/23 01/07/23 08:00 release Active Medications Generic Name Dose Route Start Last Admin Trade Name Christopherq PRN Reason Stop Dose Admin Acetaminophen 1,000 mg 01/08/23 06:00 01/08/23 10:21 Acetaminophen 500 Mg Tab PO 01/08/23 18:00 1,000 mg PREOP IZZY Administration Dexamethasone 8 mg 01/08/23 06:00 01/08/23 10:21 Dexamethasone 4 Mg Tab PO 01/08/23 18:00 8 mg PREOP IZZY Administration Famotidine 20 mg 01/08/23 06:00 01/08/23 10:21 Famotidine 20 Mg Tab PO 01/08/23 18:00 20 mg PREOP IZZY Administration Gabapentin 300 mg 01/08/23 06:00 01/08/23 10:21 Gabapentin 300 Mg Cap PO 01/08/23 18:00 300 mg PREOP IZZY Administration Lactated Ringer's 1,000 mls @ 60 mls/hr 01/08/23 06:00 01/08/23 10:20 Lr IV 01/08/23 22:39 60 mls/hr .[id number] IZZY Administration NPO Date Last Intake of Fluids: 01/07/23 Time Last Intake of Fluids: 22:00 Date Last Intake of Solids: 01/07/23 Time Last Intake of Solids: 17:00 Past Medical History Medical History Bladder stones 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 doing well currently. GERD (gastroesophageal reflux disease) controlled, stable per pt History of COVID-19 hx - mild symptoms at the time. 08/2021 Hyperlipidemia Hypertension controlled, stable per pt Morbid obesity Renal insufficiency Exercise / Class Metabolic Activity II 4-5 Yardwork/Stairs/Walk up hill Past Family History Family History Mother Diabetes Other No family history of adverse response to anesthesia Past Surgical History Surgical History H/O cystoscopy 06/14/20 LMA#5. History of colonoscopy multiple History of incision and drainage left upper leg after trama History of tonsillectomy and adenoidectomy Status post endovenous radiofrequency ablation (RFA) of saphenous vein right leg as per pt Past Anesthesia History No Hx of Anesthesia Complications and No Family Hx of Anesthesia Complications History of PONV No Hx of PONV and No Hx of Motion Sickness Social History Smoking Status: Never smoker Do You Dip or Chew Tobacco: No Hx Alcohol Use: Yes Alcohol type: beer and wine alcohol intake frequency: holidays/special occasions only Hx Substance Use: No substance use type: does not use Physical Exam Vital Signs Last Vital Signs Temp 97.7 F 01/08/23 09:50 Pulse 64 01/08/23 09:50 Resp 18 01/08/23 09:50 BP 191/84 H 01/08/23 09:50 Pulse Ox 94 01/08/23 09:50 O2 Del Method Room Air 01/08/23 09:50 ENMT Mouth: no dentition abnormality Thyromental Distance: > or= 3.5 Finger Breadths Mallampati Class: II Neck normal visual inspection Respiratory normal respiratory effort Auscultation: lungs clear to auscultation bilaterally Cardiovascular Rate/Rhythm: regular rate and regular rhythm Testing Electrocardiogram Date: 12/19/22 Sinus rhythm with 1st degree AV block, rate 62 bpm RBBB Cannot rule out inferior infarct, age undetermined Chest X-Ray Date: 12/19/22 Cardiomegly with no active disease in the chest Stress Test Date: 01/05/23 Type: DSE Findings: + WNL
--- NOTE | 2023-01-08 13:42 | Operative Report ---
PG Post Operative Report Pre & Post Diagnosis Operation Date: 01/08/23 11:00 Pre-Op Diagnosis: Left Hip Degenerative Joint Disease Post-Op Diagnosis: Left Hip Degenerative Joint Disease I identified the patient and participated in the time-out.: Yes Procedure Operation Date: 01/08/23 11:00 Actual Procedures p Left Total Hip Arthroplasty Anterior(Left) - Benjie Rodriguez DO Surgeon Benjie Rodriguez DO Landscape Architect Benjie Campbell PA-C Estimated Blood Loss 350 Findings Consistent with Post-Op Diagnosis Specimens Left femoral head Description of Procedure Implants used I used a ZimmerBiomet total hip arthroplasty system with a size 3 high offset Avenir Complete stem, a 52 mm G7 cup with a 25mm screw, an E1 polyethylene li ner, a 36 mm ceramic head with a +3.5 neck. Malcolm arrived at the hospital for the above procedure. He was seen in the preoperative holding area and the operative extremity was identified and signed. He was given a spinal anesthetic, a preoperative antibiotic, and TXA. He was then taken back to the operating room and laid on the table in the supine position. He was given basic sedation. The operative leg was secured to a Puristst leg positioner. The hip was then prepped and draped in sterile fashion. A timeout was done and the patient and the operative extremity was properly identified. An anterior approach was used. Dissection was taken down through the fascia and the tensor muscle belly was retracted laterally and the rectus was retracted medially. The circumflex vessels were identified and ligated. The capsule was then incised and tagged for later repair. The femoral neck was then cut and the femoral head was removed. The acetabulum was exposed. Time was spent doing a complete circumferential labral release. Sequential reaming of the acetabulum up to a size 51 reamer was done. Final reamings were done under fluoroscopy to ensure appropriate version. A Biomet 52 mm G7 cup was then impacted into place. A single 25 mm screw was placed. The E1 polyethylene liner was then snapped into place. Surrounding soft tissues were then injected with 100 cc of an orthopedic pain control cocktail. The proximal femur was then exposed. Sequential broaching up to a size 3 broach was done. Off that broach a size 36 head with a +3.5 neck was trialed. The hip was reduced and fluoroscopic images showed anatomic alignment of the implants in acceptable length. The broach was removed. The final size 3 high offset Avenir Complete stem was then impacted into place. A ceramic 36 mm head with a +3.5 neck was then impacted onto the stem and the hip was reduced. Final fluoroscopic images showed anatomic alignment of the hip. The capsule was then closed with #1 Vicryl suture. A dilute betadyne lavage was then done for 3 minutes. The joint was then irrigated with normal saline solution. The fascia was closed with #1 PDS suture. Skin was closed with 2-0 Vicryl, janny, and a Silverlon dressing. He was then transferred to a hospital bed and taken to the post anesthesia care unit in stable condition. He tolerated the procedure well. Benjie Campbell PA-C, was present for the entire procedure. He was critical for patient positioning, prepping, draping, retraction exposure, wound closure and application of sterile dressing. I attest to the content of the Intraoperative Record and any orders documented therein. Any exceptions are noted below.
--- NOTE | 2023-01-08 13:59 | Fluoroscopy Report ---
INTRAOPERATIVE RADIOGRAPHS CLINICAL HISTORY: Left hip arthroplasty. Fluoro time: 22 seconds. Ka,r: 923 mGy FINDINGS: 3 spot fluoroscopic views of the left hip are presented. A bipolar left hip arthroplasty is in near anatomic alignment. No evidence of acute fracture is seen on these fluoroscopic images. IMPRESSION: Intraoperative images from a left hip arthroplasty procedure as above. Electronically signed by: Rodrigo Ott M.D. 01/08/2023 1:58 PM
--- NOTE | 2023-01-08 15:37 | XRay Report ---
XR hip 1V LT w pelvis CLINICAL HISTORY: IN PACU - Post Surgical TECHNIQUE: 1 views of the right hip and single frontal view of the pelvis were obtained. Comparison: Comparison is made to left hip fluoroscopy 01/08/2023 FINDINGS: Patient is status post total hip arthroplasty with expected postsurgical changes including soft tissu e swelling and subcutaneous emphysema. IMPRESSION: Expected postoperative appearance status post placement of total hip arthroplasty. ACT 112: Negative or not required by law. Electronically signed by: Angel Higuera M.D. 01/08/2023 3:36 PM
--- NOTE | 2023-01-08 16:21 | Anesthesiology Progress Note ---
Date of Service January 08, 2023 Anesthesia Post Procedure Vital Signs Vital Signs: Temp Pulse Pulse Resp BP BP Pulse Ox 01/08/23 16:00 59 L 20 111/60 95 01/08/23 15:50 36.4 C L 61 16 140/68 96 01/08/23 15:40 64 22 116/71 93 01/08/23 15:30 62 23 126/68 94 01/08/23 15:20 59 L 15 131/65 94 01/08/23 15:10 61 22 126/71 96 01/08/23 15:00 60 20 127/60 94 01/08/23 14:50 36.5 C 57 L 18 138/56 L 94 01/08/23 14:40 60 21 126/47 L 93 01/08/23 14:30 61 20 114/58 L 93 01/08/23 14:20 64 24 121/53 L 93 01/08/23 14:10 64 20 122/54 L 95 01/08/23 14:00 36.0 C L 70 12 121/61 93 01/08/23 09:50 36.5 C 64 18 191/84 H 94 O2 Del Method O2 Flow Rate 01/08/23 16:00 Nasal Cannula 2 01/08/23 15:50 Nasal Cannula 2 01/08/23 15:40 Nasal Cannula 2 01/08/23 15:30 Nasal Cannula 2 01/08/23 15:20 Nasal Cannula 2 01/08/23 15:10 Nasal Cannula 2 01/08/23 15:00 Nasal Cannula 2 01/08/23 14:50 Nasal Cannula 2 01/08/23 14:40 Nasal Cannula 2 01/08/23 14:30 Oxymask 4 01/08/23 14:20 Oxymask 4 01/08/23 14:10 Oxymask 6 01/08/23 14:00 Oxymask 6 01/08/23 09:50 Room Air Transfer of Care Handoff Completed per policy Notes Mental Status: alert / awake / arousable Patient Amnestic to Procedure: Yes Nausea / Vomiting: adequately controlled Pain: adequately controlled Airway Patency, RR, SpO2: stable & adequate BP & HR: stable & adequate Hydration State: stable & adequate Neuraxial Anesthesia: was administered and sensory block is resolving Anesthetic Complications: no major complications apparent and Pt Satisfied with anesthetic care
[2023-01-08] MEDS ORDERED: METOCLOPRAMIDE HCL INJ 5 MG/ML 2 ML VIAL IV PRN (16:51)
[2023-01-08] MEDS ORDERED: bisacodyL 10 MG SUPP PR PRN (16:51)
[2023-01-08] MEDS ORDERED: NALOXONE HCL 0.4 MG/1 ML VIAL/CARP IV PRN (16:51)
[2023-01-08] MEDS ORDERED: MAGNESIUM HYDROXIDE SUSP 30 ML UDC PO PRN (16:51)
[2023-01-08] MEDS ORDERED: HYDROmorphone INJ 0.5 MG/0.5 ML SYR IV PRN (16:51)
[2023-01-08] MEDS ORDERED: oxyCODONE HCL IR 5 MG TAB (IMMEDIATE RELEASE) PO PRN (16:51)
[2023-01-08] MEDS: SODIUM CHLORIDE 0.9% 1000ML 1,000 ML IV SCH (17:34)
[2023-01-08] MEDS: KETOROLAC TROMETHAMINE 15 MG/ML VIAL IV SCH ×2 (18:32→22:27)
[2023-01-08] MEDS: ACETAMINOPHEN 500 MG TAB PO SCH ×2 (18:32→22:26)
[2023-01-08] MEDS: ceFAZolin 2000MG 2,000 MG/15 ML SYR IV SCH (19:53)
[2023-01-08] MEDS: DOCUSATE SODIUM 100 MG CAP PO SCH (19:55)
[2023-01-08] MEDS: ASPIRIN 81 MG ECTAB PO SCH (19:55)
[2023-01-08] MEDS ORDERED: SENNA 8.6 MG TAB PO SCH (21:00)
[2023-01-09] MEDS: SODIUM CHLORIDE 0.9% 1000ML 1,000 ML IV SCH (03:47)
[2023-01-09] MEDS: KETOROLAC TROMETHAMINE 15 MG/ML VIAL IV SCH (04:06)
[2023-01-09] MEDS: ceFAZolin 2000MG 2,000 MG/15 ML SYR IV SCH (04:06)
[2023-01-09] MEDS: ACETAMINOPHEN 500 MG TAB PO SCH (05:11)
--- NOTE | 2023-01-09 07:19 | Orthopedic Progress Note ---
Date of Service January 09, 2023 Assessment & Plan (1) Status post left hip replacement: Overall he is doing very well. He is not having much pain in the left hip. He will be seen by physical therapy today for ambulation and range of motion exercises. He is on aspirin for DVT prophylaxis. He can be discharged home later today. He will follow-up orthopedics in 2 weeks. Wen Fowler was seen and examined at bedside this morning. Overall he is doing very well. He is not having much pain in the left hip. He has been up and ambulating to the bathroom. He has no complaints.. Review of Systems All systems reviewed & are unremarkable except as noted in HPI & below. Physical Exam On physical examination of the left hip, the dressing is clean and dry. His leg is out full extension. He has active dorsiflexion plantarflexion of his left ankle.. Results & Data Results & Data Laboratory Results . Diagnostic Findings Postoperative x-rays of the left hip show the prosthesis to be in anatomic align ment without any evidence of fracture, desiccation, or loosening.. PG Care Time/CCT Total # of Minutes Spent Total Time Spent with Patient: Total time spent is greater than 50% in coordination of care (as documented) at patient's floor/unit and/or counseling patient: Coding Level of Care Code 44049 Post Operative Follow-Up Diagnoses Status post left hip replacement Z96.642
--- NOTE | 2023-01-09 07:21 | Discharge Summary ---
Date of Service January 09, 2023 Principal Diagnosis Same as "Discharge Diagnosis" noted below under Discharge Instructions. Discharge Exam On physical examination of the left hip, the dressing is clean and dry. His leg is out full extension. He has active dorsiflexion plantarflexion of his left ankle.. Discharge Data Procedures Performed Operation Date: 01/08/23 11:00 Actual Procedures p Left Total Hip Arthroplasty Anterior(Left) - Benjie Rodriguez DO Ordered Studies 01/08/23 07:00 FL hip LT 1V Routine Hospital Course (1) Status post left hip replacement: On January 08, 2023 Malcolm arrived at [facility] and underwent a left hip replacement without complication. He had a spinal anesthetic. Postoperatively he was started on aspirin for DVT prophylaxis and transferred to the general orthopedic floors. His hospital course was uneventful. On postop day #1, his vital signs were stable and his pain was well controlled. He was able to participate well with physical therapy doing ambulation and range of motion exercises. He was then discharged home. He will follow-up with orthopedics in 2 weeks. PG Care Time/CCT Total # of Minutes Spent Total Time Spent with Patient: Total time spent is greater than 50% in coordination of care (as documented) at patient's floor/unit and/or counseling patient: Discharge Plan Discharge Items Patient Disposition: Home - Home Health Services Reason For Visit: Left Hip Degenerative Joint Disease Discharge Diagnosis: Left hip replacement Activity: Per Instructions section Non-emergency contact: Surgeon Call non-emergency contact if: your wound has increased redness and your wound has increased drainage Follow-up/Referrals: Josué Vallecillo MD [Primary Care Provider] - Diet: Regular Addtl Attending Provider Instructions: Activity and Therapy Recommendations: * If you are using [facility] then therapy will be provided at your home until they feel you have accomplished all of your goals. * If you are using [facility] then Physical Therapy will be provided until they feel you are ready to start Outpatient Physical Therapy. * If you are not using home therapy then Outpatient Physical Therapy should start about 3-5 days from your day of surgery. Therapy will last about 6-10 weeks * You were shown a series of exercises in the hospital. Do these exercises three times each day including the exercises you were shown in physical therapy. * Get up and walk several times each day.~ For the first four weeks, try not to stand or walk for more than one hour at a time. If you do stand or walk for more than one hour, you will not hurt anything, but your leg will likely swell.~~ * As you feel comfortable, you may change from the walker or crutches to a cane and~then to independent walking. Medications: * Narcotic You will likely be sent home from the hospital with a prescription for the narcotic pain medication that worked best throughout your stay. * Aspirin Most patients will be required to take Aspirin 81mg twice a day for 6 weeks after surgery. This is obtained [id number] and a prescription is not necessary. * Other medications may be prescribed for specific circumstances. If you have any questions, please call the office at . * Resume previous home medications unless otherwise instructed TEDs/Elastic Stockings: The white elastic stockings help limit swelling and prevent blood clots from forming in your legs. The more you wear them, the more they work. Wear them for six weeks. Dressing Care: Leave the Silverlon dressing in place for 7 days. After 7 days you may remove the dressing. If the incision is not draining then you may leave the janny open to air. If there is a little bit of drainage or if the janny are getting stuck on your clothing then cover the incision with a dry dressing. The janny will be removed at your 2 week follow-up appointment. Showering: You may shower with the Silverlon dressing in place. Do not let the shower spray hit the dressing directly. Pat the Silverlon dressing dry. If the dressing becomes wet underneath, then simply remove the dressing. Keep the incision dry until you are 7 days out from the day of surgery. After 7 days you may remove the Silverlon dressing and shower with the janny exposed. Let soapy water run over the janny and pat them dry. Do not scrub or soak the incision. Things To Watch For: * Drainage from the incision site that occurs more than one week after your surgery. * Increased redness at the incision site. * Fever above 102 degrees Fahrenheit. * Unusual chest pain or shortness of breath. * Call [facility] at with any of the above problems Follow-Up Visit: Follow-up with Dr. Rodriguez's PA (Benjie Campbell) 2-3 weeks after your day of surgery. He will remove your janny and answer any questions. If you have any additional questions or concerns, Dr Rodriguez is usually in the office at the same time and will be available An appointment was probably scheduled when you signed-up for surgery in the office. If you have any questions call Office Instructions: More detailed instructions as well as Frequently Asked Questions were provided in a folder by our office when you signed-up for surgery. Please review these instructions when you get home. If you have any further questions or concerns, please feel free to call the office at [phone] Pending Studies at Discharge: No Stand-Alone Forms: My [facility] Medications and DC Order Prescriptions: New oxycodone-acetaminophen 5-325 mg tablet 1 tab PO Q6H PRN (Reason: pain) Qty: 30 0RF Continued pantoprazole 40 mg tablet,delayed release (DR/EC) 40 mg PO QAM enalapril maleate [Vasotec] 20 mg tablet 40 mg PO QAM metoprolol succinate [Toprol XL] 50 mg tablet extended release 24 hr 50 mg PO QAM Changed aspirin 81 mg Tablet,Delayed Release (Dr/Ec) 81 mg PO BID 42 Days Qty: 0 0RF Admission Data Admit Date/Time: 01/08/23 13:57 Attending Provider: Benjie Rodriguez Admit Provider: Benjie Rodriguez Primary Care Provider: Josué Vallecillo
[2023-01-09] MEDS: DOCUSATE SODIUM 100 MG CAP PO SCH (07:26)
[2023-01-09] MEDS: ASPIRIN 81 MG ECTAB PO SCH (07:26)
[2023-01-09] MEDS ORDERED: dexAMETHasone 4 MG TAB PO SCH (08:00)
[2023-01-09] MEDS ORDERED: ENALAPRIL MALEATE 10 MG TAB PO SCH (09:00)
[2023-01-09] MEDS ORDERED: METOPROLOL SUCC 50MG EXT REL TAB PO SCH (09:00)
[2023-01-09] MEDS ORDERED: MULTIVITAMIN TAB PO SCH (09:00)
== END 2023-01-09 10:38 | disposition home health service (06) ==
LOC: ASU 08:55 → 3N 08:55